=== PATIENT | female | born 1955 ===

== ENCOUNTER 2017-06-23 10:36 | Emergency (ER) | payer MEDICARE, MEDICAID ==
[2017-06-23 10:36] VITALS: BMI 28.3
[2017-06-23 10:46] VITALS: TEMP 97.8
[2017-06-23] MEDS ORDERED: Sodium Chloride 0.9% 1,000 ML IV ONE ×2 (11:50→11:53)
[2017-06-23 12:05] LABS: BASO # 0.1 K/uL (0.0-0.2); BASO % 1.1 % (0.0-2.0); EOS # 0.2 K/uL (0.0-0.7); EOS % 2.6 % (0.0-4.0); HEMOGLOBIN 12.1 g/dL (11.0-16.0); LYMPH # 2.4 K/uL (1.0-4.3); LYMPH % 36.6 % (20.0-40.0); MEAN CELL VOLUME 84.5 fL (81.0-99.0); MEAN CORPUSCULAR HEMOGLOBIN 28.7 pg (27.0-31.0); MEAN CORPUSCULAR HGB CONC 33.9 g/dL (33.0-37.0); MONO # 0.3 K/uL (0.0-0.8); MONO % 3.9 % (0.0-10.0); NEUT # 3.6 K/uL (1.8-7.0); NEUT % 55.8 % (50.0-75.0); NRBC % 0.1 % (0.0-2.0); RBC 4.2 Mil/uL (3.80-5.20); RED CELL DISTRIBUTION WIDTH 14.7 % (11.5-14.5); WHITE BLOOD COUNT 6.5 K/uL (4.8-10.8)
--- NOTE | 2017-06-23 12:16 | C.PDOC ---
History Of Present Illness 62-year-old female, presents to the emergency department with complaints of right flank pain, and urinary frequency, states she has had for " a while." Patient has a Hx of kidney stones, she called her doctor, who told patient to come to ED for further evaluation. Denies hematuria, abdominal pain. Time Seen by Provider: 06/23/17 11:34 Chief Complaint (Nursing): Back Pain History Per: Patient History/Exam Limitations: no limitations Past Medical History Reviewed: Historical Data, Nursing Documentation, Vital Signs Vital Signs: Last Vital Signs Temp 97.8 F 06/23/17 10:40 Pulse 85 06/23/17 13:53 Resp 16 06/23/17 13:53 BP 141/85 06/23/17 13:53 Pulse Ox 99 06/23/17 13:53 - Medical History PMH: Gastritis, HTN, Kidney Stones - [facility] Procedures DX ULTRASOUND-HEAD/NECK (11/12/14) PERCUTAN NEEDLE BX OF THYROID GLAND (11/12/14) Family History: States: No Known Family Hx - Social History Hx Alcohol Use: No Hx Substance Use: No - Immunization History Hx Tetanus Toxoid Vaccination: No Hx Influenza Vaccination: No Hx Pneumococcal Vaccination: No Review Of Systems Constitutional: Negative for: Fever, Chills Respiratory: Negative for: Shortness of Breath Gastrointestinal: Negative for: Vomiting Genitourinary: Positive for: Frequency Musculoskeletal: Positive for: Back Pain Neurological: Negative for: Weakness, Numbness, Headache, Dizziness Physical Exam - Physical Exam Appears: Non-toxic, No Acute Distress Skin: Normal Color, Warm, Dry, No Rash Head: Normacephalic Eye(s): bilateral: PERRL Nose: Normal Oral Mucosa: Moist Lips: Normal Appearing Neck: Normal ROM Cardiovascular: Rhythm Regular, No Murmur Respiratory: Normal Breath Sounds, No Accessory Muscle Use Back: Paraspinal Tenderness (midline tenderness) Extremity: Normal ROM, No Deformity, No Swelling ED Course And Treatment - Laboratory Results Result Diagrams: 06/23/17 12:01 06/23/17 13:05 Lab Interpretation: No Acute Changes O2 Sat by Pulse Oximetry: 96 (RA) Pulse Ox Interpretation: Normal - CT Scan/US No standard instances Other Rad Studies (CT/US): Read By Radiologist, Radiology Report Reviewed CT/US Interpretation: FINDINGS: LOWER THORAX: Unremarkable. LIVER: Normal size, contour and attenuation. Small nodular calcification in the left hepatic lobe consistent with a calcified granuloma. No biliary ductal dilatation. GALLBLADDER AND BILE DUCTS: Unremarkable. PANCREAS: Unremarkable. No gross lesion or ductal dilatation. SPLEEN: Unremarkable. ADRENALS: Unremarkable. No mass. KIDNEYS AND URETERS: Mild right hydronephrosis. No hydroureter. Probably related to UPJ obstruction. This is unchanged in appearance compared to prior examination. No left hydronephrosis. No renal mass. Two very small calculi are seen adjacent to 1 another in the mid left kidney, 2-3 mm each. No right renal calculus. No ureteral calculus. VASCULATURE: Unremarkable. No aortic aneurysm. BOWEL: Unremarkable. No obstruction. No gross mural thickening. APPENDIX: Unremarkable. Normal appendix. PERITONEUM: Unremarkable. No free fluid. No free air. LYMPH NODES: Unremarkable. No enlarged lymph nodes. BLADDER: Unremarkable. REPRODUCTIVE: Status post hysterectomy. BONES: No acute fracture. Status post posterior fixation L4 through S1 with pedicle screws and rods. OTHER FINDINGS: None. IMPRESSION: Two very small nonobstructing left renal calculi. Mild right hydronephrosis likely secondary to UPJ obstruction. Status post hysterectomy. Additional minor findings as above. Progress Note: Treated with IVF NSS and toradol. Treated with macrobid 100 mg PO. On re-evaluation abdomen soft Reassessment Condition: Improved Disposition - Disposition Referrals: Kajal Cooper MD [Staff Provider] - Disposition: HOME/ ROUTINE Disposition Time: 14:00 Condition: STABLE Additional Instructions: Return to ED if any increase symptoms Prescriptions: Ciprofloxacin [Cipro] 1 tab PO BID #14 tab Instructions: Flank Pain Forms: [facility] (Bhutanese) - POA Present On Arrival: None - Clinical Impression Clinical Impression: Low back pain - Scribe Statement The provider has reviewed the documentation as recorded by the Scribe (jus Dash) All medical record entries made by the Scribe were at my direction and personally dictated by me. I have reviewed the chart and agree that the record accurately reflects my personal performance of the history, physical exam, medical decision making, and the department course for this patient. I have also personally directed, reviewed, and agree with the discharge instructions and disposition.
[2017-06-23] MEDS ORDERED: Sodium Chloride 0.9% 2,000 ML ONE (12:32)
--- NOTE | 2017-06-23 12:44 | CT ---
PROCEDURE: CT Abdomen and Pelvis without intravenous contrast HISTORY: Pain COMPARISON: 03/13/2014 TECHNIQUE: Without contrast.. Contrast Dose: 0 Radiation dose: Total exam DLP = Total exam DLP = 466.96 mGy-cm. This CT exam was performed using one or more of the following dose reduction techniques: Automated exposure control, adjustment of the mA and/or kV according to patient size, and/or use of iterative reconstruction technique. FINDINGS: LOWER THORAX: Unremarkable. LIVER: Normal size, contour and attenuation. Small nodular calcification in the left hepatic lobe consistent with a calcified granuloma. No biliary ductal dilatation. GALLBLADDER AND BILE DUCTS: Unremarkable. PANCREAS: Unremarkable. No gross lesion or ductal dilatation. SPLEEN: Unremarkable. ADRENALS: Unremarkable. No mass. KIDNEYS AND URETERS: Mild right hydronephrosis. No hydroureter. Probably related to UPJ obstruction. This is unchanged in appearance compared to prior examination. No left hydronephrosis. No renal mass. Two very small calculi are seen adjacent to 1 another in the mid left kidney, 2-3 mm each. No right renal calculus. No ureteral calculus. VASCULATURE: Unremarkable. No aortic aneurysm. BOWEL: Unremarkable. No obstruction. No gross mural thickening. APPENDIX: Unremarkable. Normal appendix. PERITONEUM: Unremarkable. No free fluid. No free air. LYMPH NODES: Unremarkable. No enlarged lymph nodes. BLADDER: Unremarkable. REPRODUCTIVE: Status post hysterectomy BONES: No acute fracture. Status post posterior fixation L4 through S1 with pedicle screws and rods. OTHER FINDINGS: None. IMPRESSION: Two very small nonobstructing left renal calculi. Mild right hydronephrosis likely secondary to UPJ obstruction. Status post hysterectomy. Additional minor findings as above.
[2017-06-23 12:46] LABS: SQUAMOUS EPITHIAL 3 /hpf (0-5); URINE BACTERIA RARE (<OCC); URINE BILIRUBIN NEGATIVE (NEGATIVE); URINE BLOOD NEGATIVE (NEGATIVE); URINE CLARITY Clear (Clear); URINE COLOR Yellow (YELLOW); URINE GLUCOSE (UA) NORMAL (Normal); URINE LEUKOCYTE ESTERASE 2+ Leu/uL (Negative); URINE PROTEIN NEGATIVE (NEGATIVE); URINE UROBILINOGEN NORMAL mg/dL (0.2-1.0)
[2017-06-23 13:14] LABS: ALB/GLOB RATIO 1.2 (1.0-2.1); ALT/SGPT 22 U/L (9-52); AST/SGOT 26 U/L (14-36); BLOOD UREA NITROGEN 11 mg/dL (7-17); GFR AFRICAN-AMERICAN > 60; GFR NON-AFRICAN AMERICAN > 60
[2017-06-23 13:53] VITALS: BP 141/85; PULSE 85; RESP 16
[2017-06-23 18:30] VITALS: O2SAT 96
== END 2017-06-23 13:53 | disposition home or self-care (01) ==
LOC: C.ER 10:36
DX: M54.5 Low back pain (principal)
CPT/HCPCS: 74176; 80053; 81001; 85025; 87086; 96361; 96374; 99283; J1885; J7040

== ENCOUNTER 2017-10-05 09:52 | Emergency (ER) | payer MEDICARE, MEDICAID ==
[2017-10-05 09:53] VITALS: BMI 28.3
[2017-10-05] MEDS ORDERED: Sodium Chloride 0.9% 500 ML IV ONE ×2 (10:55→11:11)
[2017-10-05 11:17] LABS: BASO # 0.1 K/uL (0.0-0.2); BASO % 0.7 % (0.0-2.0); EOS # 0.1 K/uL (0.0-0.7); HEMOGLOBIN 12.6 g/dL (11.0-16.0); LYMPH # 2.7 K/uL (1.0-4.3); MEAN CELL VOLUME 84.7 fL (81.0-99.0); MEAN CORPUSCULAR HEMOGLOBIN 27.5 pg (27.0-31.0); MEAN CORPUSCULAR HGB CONC 32.5 g/dL (33.0-37.0); MEAN PLATELET VOLUME 10.8 fL (7.2-11.7); MONO # 0.3 K/uL (0.0-0.8); MONO % 4.1 % (0.0-10.0); NEUT # 4.1 K/uL (1.8-7.0); NEUT % 56.2 % (50.0-75.0); NRBC % 0.1 % (0.0-2.0); RBC 4.58 Mil/uL (3.80-5.20); RED CELL DISTRIBUTION WIDTH 14.7 % (11.5-14.5); WHITE BLOOD COUNT 7.3 K/uL (4.8-10.8)
[2017-10-05 11:27] LABS: URINE BILIRUBIN NEGATIVE (NEGATIVE); URINE BLOOD NEGATIVE (NEGATIVE); URINE CLARITY Clear (Clear); URINE COLOR Straw (YELLOW); URINE GLUCOSE (UA) NORMAL (Normal); URINE LEUKOCYTE ESTERASE 1+ Leu/uL (Negative); URINE PROTEIN NEGATIVE (NEGATIVE); URINE UROBILINOGEN NORMAL mg/dL (0.2-1.0)
[2017-10-05 11:33] LABS: SQUAMOUS EPITHIAL 2 /hpf (0-5); URINE BACTERIA RARE (<OCC)
[2017-10-05 11:42] LABS: ALB/GLOB RATIO 1.4 (1.0-2.1); ALBUMIN 4.1 g/dL (3.5-5.0); ALT/SGPT 31 U/L (9-52); AST/SGOT 32 U/L (14-36); BLOOD UREA NITROGEN 15 mg/dL (7-17); CALCIUM 9.4 mg/dl (8.6-10.4); GFR AFRICAN-AMERICAN > 60; GFR NON-AFRICAN AMERICAN > 60
[2017-10-05 12:02] VITALS: BP 156/98; PULSE 67; RESP 18; TEMP 98.3; O2SAT 100
--- NOTE | 2017-10-05 12:21 | C.PDOC ---
History Of Present Illness 62-year-old female presents to the emergency department with complaints of suprapubic pain (feels like a burning sensation) associated with dysuria that started 2 days ago but worsened today. Patient is s/p cystoscopy done by Dr. Gallego approximately one week ago. She denies vomiting, diarrhea, fever, vaginal bleeding/discharge, chest pain, SOB. She is currently on Macrobid x2 months given to her by her urologist (started after cystoscopy). Time Seen by Provider: 10/05/17 10:24 Chief Complaint (Nursing): Female Genitourinary History Per: Patient History/Exam Limitations: no limitations Onset/Duration Of Symptoms: Days Current Symptoms Are (Timing): Still Present Severity: Moderate Quality Of Discomfort: Burning, "Pain" Associated Symptoms: Urinary Symptoms (dysuria) Past Medical History Reviewed: Historical Data, Nursing Documentation, Vital Signs Vital Signs: Last Vital Signs Temp 98.3 F 10/05/17 12:02 Pulse 67 10/05/17 12:02 Resp 18 10/05/17 12:02 BP 156/98 H 10/05/17 12:02 Pulse Ox 100 10/05/17 15:03 - Medical History PMH: Gastritis, HTN, Kidney Stones - [facility] Procedures DX ULTRASOUND-HEAD/NECK (11/12/14) PERCUTAN NEEDLE BX OF THYROID GLAND (11/12/14) Family History: States: No Known Family Hx - Social History Hx Alcohol Use: No Hx Substance Use: No - Immunization History Hx Tetanus Toxoid Vaccination: No Hx Influenza Vaccination: No Hx Pneumococcal Vaccination: No Review Of Systems Constitutional: Negative for: Fever Cardiovascular: Negative for: Chest Pain Respiratory: Negative for: Cough, Shortness of Breath Gastrointestinal: Positive for: Abdominal Pain. Negative for: Nausea, Vomiting , Diarrhea Genitourinary: Positive for: Dysuria. Negative for: Frequency, Hematuria, Vaginal Discharge, Vaginal Bleeding Skin: Negative for: Rash Neurological: Negative for: Weakness, Headache Physical Exam - Physical Exam Appears: Well, Non-toxic, No Acute Distress Skin: Normal Color, Warm, Dry, No Rash Eye(s): bilateral: Normal Inspection Oral Mucosa: Moist Cardiovascular: Rhythm Regular Respiratory: Normal Breath Sounds, No Rales, No Rhonchi, No Wheezing Gastrointestinal/Abdominal: Bowel Sounds, Soft, Tenderness (suprapubic TTP, (-) McBurney's), No Distention, No Guarding, No Rebound Back: Normal Inspection, No CVA Tenderness Extremity: Normal ROM, No Deformity, No Swelling Neurological/Psych: Oriented x3 ED Course And Treatment - Laboratory Results Result Diagrams: 10/05/17 11:12 10/05/17 11:12 O2 Sat by Pulse Oximetry: 100 (RA) Pulse Ox Interpretation: Normal Progress Note: Bloodwork, UA/culture ordered. Patient given IV NS bolus, IV toradol. Reevaluation Time: 12:20 Reassessment Condition: Improved (On reassessment, patient is resting comfortably and pain has improved. On exam, abdomen is soft and nontender. Patient given rx for pyridium, and instructed to follow up with Dr. Gallego in the office (and to continue current antibiotics). She understands she should return to ED if symptoms worsen.) - Physician Consult Information Outcome Of Conversation: Discussed patient with Dr. Gallego, instructs continue antibiotics and follow up with him in the office. Disposition Counseled Patient/Family Regarding: Diagnosis, Need For Followup, Rx Given - Disposition Referrals: Aaron Gallego Jr., MD [Staff Provider] - Disposition: HOME/ ROUTINE Disposition Time: 12:20 Condition: STABLE Additional Instructions: FOLLOW UP WITH YOUR UROLOGIST IN 1-2 DAYS CONTINUE THE MACROBID YOUR UROLOGIST GAVE YOU USE NEW MEDICATION DIRECTED, AND USE YOUR TRAMADOL NEEDED FOR PAIN RETURN TO EMERGENCY ROOM IF SYMPTOMS WORSEN SEGUIMIENTO CON LORENZANA UROLOGIST EN 1-2 CARO CONTINE CON EL MACROBIDO QUE LORENZANA UROLOGISO LE MUMTAZ USE NUEVOS MEDICAMENTOS SEGN SE INDICA, Y USE LORENZANA TRAMADOL SEGN SEA NECESARIO PARA DOLOR REGRESE AL TATIANA DE EMERGENCIA SI LOS SNTOMAS EMPEORAN Prescriptions: Phenazopyridine [Pyridium] 100 mg PO TID #9 tab Instructions: Urinary Tract Infection, Adult (DC) Forms: [facility] (Lithuanian) Print Language: THAI - Clinical Impression Clinical Impression: UTI (urinary tract infection) - Scribe Statement The provider has reviewed the documentation as recorded by the Scribe (Dorota Dash) All medical record entries made by the Scribe were at my direction and personally dictated by me. I have reviewed the chart and agree that the record accurately reflects my personal performance of the history, physical exam, medical decision making, and the department course for this patient. I have also personally directed, reviewed, and agree with the discharge instructions and disposition.
== END 2017-10-05 12:50 | disposition home or self-care (01) ==
LOC: C.ER 09:52
DX: N39.0 Urinary tract infection, site not specified (principal)
CPT/HCPCS: 80053; 81001; 85025; 87086; 96374; 99285; J1885; J7040

== ENCOUNTER 2018-01-19 16:20 | Emergency (ER) | payer MEDICARE, MEDICAID ==
[2018-01-19 17:04] VITALS: BMI 29.0
[2018-01-19] MEDS ORDERED: Sodium Chloride 0.9% 1,000 ML IV ONE (17:05)
[2018-01-19] MEDS ORDERED: Sodium Chloride 0.9% 1,000 ML ONE (17:32)
--- NOTE | 2018-01-19 17:48 | C.PDOC ---
History Of Present Illness 63-year-old female, presents to the emergency department with complaints of epigastric and right upper quadrant abdominal pain that is associated with nausea and vomiting. Patient states pain is worse after she eats and progressively worsens. She notes she woke up this morning at 06:00 with pain, associated with nausea and then had an episode of diarrhea. She notes a Hx of kidney stones in the past, with multiple procedures for removal. She states that she has been on antibiotics several times over the past 2 months for UTI ass ociated with urinary obstruction. She also had a recent cystoscopy by Dr Gallego. Patient denies any other associated symptoms. Time Seen by Provider: 01/19/18 16:41 Chief Complaint (Nursing): Abdominal Pain History Per: Patient History/Exam Limitations: no limitations Past Medical History Reviewed: Historical Data, Nursing Documentation, Vital Signs Vital Signs: Last Vital Signs Temp 98.6 F 01/19/18 17:13 Pulse 71 01/19/18 17:13 Resp 19 01/19/18 17:13 BP Pulse Ox 98 01/19/18 17:13 - Medical History PMH: Gastritis, HTN, Kidney Stones Other Surgeries: Back pain, Surgical removal of kidney stones - [facility] Procedures DX ULTRASOUND-HEAD/NECK (11/12/14) PERCUTAN NEEDLE BX OF THYROID GLAND (11/12/14) Family History: States: Unknown Family Hx - Social History Hx Tobacco Use: No Hx Alcohol Use: No Hx Substance Use: No - Immunization History Hx Tetanus Toxoid Vaccination: No Hx Influenza Vaccination: Yes Hx Pneumococcal Vaccination: No Review Of Systems Constitutional: Negative for: Fever Respiratory: Negative for: Shortness of Breath Gastrointestinal: Positive for: Nausea, Vomiting, Abdominal Pain Neurological: Negative for: Headache Physical Exam - Physical Exam Appears: Non-toxic, No Acute Distress Skin: Warm, Dry, No Rash Head: Atraumatic, Normacephalic Eye(s): bilateral: Normal Inspection Nose: Normal Oral Mucosa: Moist Lips: Normal Appearing Neck: Normal ROM Chest: Symmetrical Cardiovascular: Rhythm Regular, No Murmur Respiratory: Normal Breath Sounds, No Accessory Muscle Use Gastrointestinal/Abdominal: Soft, Tenderness (epigastric, ruq), No Mass, No Guarding, No Rebound Back: CVA Tenderness Extremity: Normal ROM, No Deformity Neurological/Psych: Oriented x3, Normal Speech ED Course And Treatment - Laboratory Results Result Diagrams: 01/19/18 17:39 01/19/18 17:39 Lab Interpretation: No Acute Changes O2 Sat by Pulse Oximetry: 98 Pulse Ox Interpretation: Normal (RA) - CT Scan/US abdominal ultrasound Other Rad Studies (CT/US): Read By Radiologist, Radiology Report Reviewed CT/US Interpretation: Accession No. : [id number]. Patient Name / ID : ARCHIE SCHULZ / [id number]. Exam Date : 01/19/2018 17:43:18 ( Approved ). Study Comment : Sex / Age : F / [id number]. Creator : Janis Logan MD. Dictator : Janis Logan MD. Retail Zone Specialist : Anesthesiologist Assistant Certified : Janis Logan MD. Approver2 : Report Date : 01/19/2018 18:30:22. My Comment : . HISTORY: abd pain. COMPARISON: CT abdomen pelvis without contrast performed 06/23/17. TECHNIQUE: Sonographic evaluation of the abdomen. FINDINGS: LIVER: Measures 15.4 cm in sagittal dimension. Echogenic liver may be seen in setting of hepatic parenchymal disease or fatty infiltration. 5 x 6 x 4 mm echogenic focus with posterior acoustic shadowing consistent with calcification, right hepatic lobe. The main portal vein appears patent with normal directional flow. No intrahepatic bile duct dilatation. GALLBLADDER: Incomplete distention. No gallstones. No gallbladder wall thickening. Negative sonographic Vaughan's sign as assessed by the hospital monitor. COMMON BILE DUCT: Measures 4 mm. PANCREAS: Not well visualized. RIGHT KIDNEY: Measures 10.8 x 5.4 x 4.8cm. Mild right-sided hydronephrosis. No obstructing calculus identified. LEFT KIDNEY: Measures 11.5 x 5.2 x 5.2cm. No obstructing calculus or hydronephrosis identified. SPLEEN: Measures approximately 8.7 cm. AORTA: Limited views appear unremarkable. IVC: Limited views appear unremarkable. OTHER FINDINGS: None. IMPRESSION: Mild right- sided hydronephrosis. Hypoattenuation of the liver compatible with hepatic steatosis. 6 mm hepatic calcification. Progress Note: 9:11pm : Spoke with Dr. Gallego regarding the patient's case. - Physician Consult Information Time Consulting Physician Contacted: 21:13 Physician Contacted: Aaron Gallego Jr. Outcome Of Conversation: Patient to follow up in the office tomorrow. Will not continue antibiotics at this time. Cultures pending. Disposition Counseled Patient/Family Regarding: Studies Performed, Diagnosis, Need For Followup - Disposition Referrals: Aaron Gallego Jr., MD [Staff Provider] - Disposition: HOME/ ROUTINE Disposition Time: 21:17 Condition: IMPROVED Instructions: Acute Abdomen (Belly Pain), Adult (DC), Hydronephrosis in Adults Forms: [facility] (Ukrainian) - Clinical Impression Clinical Impression: Abdominal pain, Hydronephrosis, right - Scribe Statement The provider has reviewed the documentation as recorded by the Scribe (Dorota Dash) Provider Attestation: All medical record entries made by the Scribe were at my direction and personally dictated by me. I have reviewed the chart and agree that the record accurately reflects my personal performance of the history, physical exam, medical decision making, and the department course for this patient. I have also personally directed, reviewed, and agree with the discharge instructions and disposition.
[2018-01-19 17:49] LABS: BASO # 0.1 K/uL (0.0-0.2); BASO % 0.8 % (0.0-2.0); EOS # 0.2 K/uL (0.0-0.7); EOS % 2.2 % (0.0-4.0); HEMOGLOBIN 12.1 g/dL (11.0-16.0); LYMPH # 3.2 K/uL (1.0-4.3); LYMPH % 40.7 % (20.0-40.0); MEAN CELL VOLUME 84.1 fL (81.0-99.0); MEAN CORPUSCULAR HEMOGLOBIN 27.8 pg (27.0-31.0); MEAN CORPUSCULAR HGB CONC 33.1 g/dL (33.0-37.0); MEAN PLATELET VOLUME 10.4 fL (7.2-11.7); MONO # 0.4 K/uL (0.0-0.8); MONO % 5.1 % (0.0-10.0); NEUT # 4.1 K/uL (1.8-7.0); NEUT % 51.2 % (50.0-75.0); RBC 4.33 Mil/uL (3.80-5.20); RED CELL DISTRIBUTION WIDTH 14.4 % (11.5-14.5)
[2018-01-19 17:54] LABS: SQUAMOUS EPITHIAL 1 /hpf (0-5); URINE BACTERIA FEW (<OCC); URINE BILIRUBIN NEGATIVE (NEGATIVE); URINE BLOOD NEGATIVE (NEGATIVE); URINE CLARITY Clear (Clear); URINE COLOR Straw (YELLOW); URINE GLUCOSE (UA) NORMAL (Normal); URINE LEUKOCYTE ESTERASE 2+ Leu/uL (Negative); URINE PROTEIN NEGATIVE (NEGATIVE); URINE UROBILINOGEN NORMAL mg/dL (0.2-1.0)
[2018-01-19 18:12] LABS: ALB/GLOB RATIO 1.3 (1.0-2.1); ALBUMIN 4.1 g/dL (3.5-5.0); ALT/SGPT 23 U/L (9-52); AST/SGOT 20 U/L (14-36); BLOOD UREA NITROGEN 12 mg/dL (7-17); CALCIUM 9.1 mg/dl (8.6-10.4); GFR NON-AFRICAN AMERICAN > 60; LIPASE 91 U/L (23-300)
--- NOTE | 2018-01-19 18:33 | US ---
HISTORY: abd pain COMPARISON: CT abdomen pelvis without contrast performed 06/23/17 TECHNIQUE: Sonographic evaluation of the abdomen. FINDINGS: LIVER: Measures 15.4 cm in sagittal dimension. Echogenic liver may be seen in setting of hepatic parenchymal disease or fatty infiltration. 5 x 6 x 4 mm echogenic focus with posterior acoustic shadowing consistent with calcification, right hepatic lobe. The main portal vein appears patent with normal directional flow. No intrahepatic bile duct dilatation. GALLBLADDER: Incomplete distention. No gallstones. No gallbladder wall thickening. Negative sonographic Vaughan's sign as assessed by the precision filer hand. COMMON BILE DUCT: Measures 4 mm. PANCREAS: Not well visualized. RIGHT KIDNEY: Measures 10.8 x 5.4 x 4.8cm. Mild right-sided hydronephrosis. No obstructing calculus identified. LEFT KIDNEY: Measures 11.5 x 5.2 x 5.2cm. No obstructing calculus or hydronephrosis identified. SPLEEN: Measures approximately 8.7 cm. AORTA: Limited views appear unremarkable. IVC: Limited views appear unremarkable. OTHER FINDINGS: None. IMPRESSION: Mild right-sided hydronephrosis. Hypoattenuation of the liver compatible with hepatic steatosis. 6 mm hepatic calcification.
[2018-01-19] MEDS ORDERED: cefTRIAXone IV 1 gm in Dextros 50 ML IVPB ONE (18:56)
[2018-01-19] MEDS ORDERED: cefTRIAXone 1 gm 1 GM/100 ML BAG IVPB ONE (19:09)
[2018-01-19 19:21] VITALS: RESP 18
[2018-01-19 21:34] VITALS: BP 154/82; PULSE 88; TEMP 98.8; O2SAT 99
== END 2018-01-19 21:34 | disposition home or self-care (01) ==
LOC: C.ER 16:20
DX: R10.13 Epigastric pain (principal); N13.30 Unspecified hydronephrosis
CPT/HCPCS: 76700; 80053; 81001; 83690; 85025; 87086; 96374; 96375; 99285; J0696; J2270; J7030

== ENCOUNTER 2018-02-09 06:23 | Day surgery (SDC) | payer MEDICARE, MEDICAID ==
[2018-02-09] MEDS ORDERED: Propofol 10 mg/ml Inj (20 ML) ONE (08:00)
[2018-02-09] MEDS ORDERED: Lactated Ringer's 500 ML IV ONE ×2 (08:02)
--- NOTE | 2018-02-09 08:13 | CP.SDSHP ---
Same Day Surgery H & P - History Proposed Procedure: colonoscopy Pre-Op Diagnosis: h/o colon polyps/adenomas (2011) - Previous Medical/Surgical History Cardiac: Hypertension, Other (hyperlipidemia, ) Endocrine/Metabolic: Diabetes Neuro: Backaches Misc: Other (L/S Disc disease, kidney stones, colon polyps) Previous Surgical History: FATOU/BSO. Kidney s tone. x 1. L/S disc fusion of spine - Allergies Allergies: Allergies Sulfa (Sulfonamide Antibiotics) Allergy (Verified 02/08/18 09:47) RASH - Physical Exam Vital Signs: Vital Signs 02/09/18 06:41 Temperature 97.5 F L Pulse Rate 62 Respiratory 19 Rate Blood Pressure 143/83 O2 Sat by Pulse 97 Oximetry Mental Status: Alert & Oriented x3 Neuro: WNL Heart: WNL Lungs: WNL GI: WNL - Impression Impression: h/o colon polyps 2012 Pt. Evaluated Today:Candidate for Anesthesia & Procedure: Yes - Date & Time Date: 02/09/18 Time: 08:13 Short Stay Discharge - Short Stay Discharge Admitting Diagnosis/Reason for Visit: RIGHT LOWER QUADRANT PAIN, CHANGE IN BOWEL HABIT, Disposition: HOME/ ROUTINE
[2018-02-09 08:37] VITALS: TEMP 97.8
[2018-02-09 09:29] VITALS: BP 120/70; PULSE 61; RESP 13; O2SAT 100
== END 2018-02-09 09:28 | disposition home or self-care (01) ==
LOC: C.ENDO 06:23
PROVIDERS: ATTEND Internal Medicine Gastroenterology
DX: K62.0 Anal polyp (principal); R19.4 Change in bowel habit; I10 Essential (primary) hypertension; E78.5 Hyperlipidemia, unspecified; E11.9 Type 2 diabetes mellitus without complications; Z86.010 Personal history of colon polyps
CPT/HCPCS: 45378; 82948; J2704; J7120

== ENCOUNTER 2018-03-27 12:21 | Emergency (ER) | payer MEDICARE, MEDICAID ==
[2018-03-27 12:21] VITALS: BMI 29.0
--- NOTE | 2018-03-27 13:24 | C.PDOC ---
History Of Present Illness 63-year-old female presents to the ED with chief complaint of right flank pain, onset this morning. Patient reports acute onset of pain to right flank today, associated with nausea and lightheadedness. She denies any dysuria, abdominal pain, fever, chills, vomiting, or diarrhea. Patient also states she checked her pressure at home and found it to be elevated. PMHx is significant for hypertension, hypercholesterolemia, arthritis, and kidney stones. 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 Time Seen by Provider: 03/27/18 13:05 Chief Complaint (Nursing): Dizziness/Lightheaded History Per: Patient History/Exam Limitations: no limitations Onset/Duration Of Symptoms: Hrs Current Symptoms Are (Timing): Still Present Past Medical History Reviewed: Historical Data, Nursing Documentation, Vital Signs Vital Signs: Last Vital Signs Temp 98.6 F 03/27/18 13:16 Pulse 72 03/27/18 13:16 Resp 18 03/27/18 13:16 BP 141/81 03/27/18 13:16 Pulse Ox 96 03/27/18 13:16 - Medical History PMH: Arthritis, Gastritis, HTN, Hypercholesterolemia, Kidney Stones, Migraine, Chronic Kidney Disease Surgical History: Endoscopy Denies: Pacemaker - [facility] Procedures DX ULTRASOUND-HEAD/NECK (11/12/14) PERCUTAN NEEDLE BX OF THYROID GLAND (11/12/14) Family History: States: Unknown Family Hx - Social History Hx Tobacco Use: No Hx Alcohol Use: No Hx Substance Use: No - Immunization History Hx Tetanus Toxoid Vaccination: No Hx Influenza Vaccination: Yes Hx Pneumococcal Vaccination: No Review Of Systems Except As Marked, All Systems Reviewed And Found Negative. Constitutional: Negative for: Fever, Chills Cardiovascular: Positive for: Light Headedness. Negative for: Chest Pain Respiratory: Negative for: Shortness of Breath Gastrointestinal: Positive for: Nausea. Negative for: Vomiting, Abdominal Pain, Diarrhea Genitourinary: Negative for: Dysuria, Frequency, Hematuria Musculoskeletal: Positive for: Back Pain (right flank) Skin: Negative for: Rash Neurological: Negative for: Weakness, Numbness Physical Exam - Physical Exam Appears: Non-toxic, No Acute Distress Skin: Warm, Dry, No Rash Head: Atraumatic, Normacephalic Eye(s): bilateral: Normal Inspection, PERRL, EOMI Oral Mucosa: Moist Neck: Normal ROM Chest: Symmetrical, No Deformity Cardiovascular: Rhythm Regular, No Murmur Respiratory: Normal Breath Sounds, No Rales, No Rhonchi, No Wheezing Gastrointestinal/Abdominal: Soft, No Tenderness, No Distention Back: No Vertebral Tenderness, Other (diffuse right flank tenderness, with right lower rib cage tenderness) Extremity: Bilateral: Atraumatic, Normal Color And Temperature, Normal ROM Neurological/Psych: Oriented x3, Normal Speech Gait: Steady ED Course And Treatment - Laboratory Results Result Diagrams: 03/27/18 14:14 03/27/18 14:35 O2 Sat by Pulse Oximetry: 96 (NC) Pulse Ox Interpretation: Normal - Radiology CXR: Read By Radiologist CXR Interpretation: Yes: No Acute Disease - CT Scan/US CT Abd/Pelvis Other Rad Studies (CT/US): Read By Radiologist, Radiology Report Reviewed CT/US Interpretation: Accession No. : [id number]. Patient Name / ID : ARCHIE SCHULZ / [id number]. Exam Date : 03/27/2018 14:48:32 ( Approved ). Study Comment : Sex / Age : F / 63Y. Creator : Ayde Panda. Dictator : Ama Covarrubias MD. Chlorinator : State Director : Ama Covarrubias MD. Approver2 : Report Date : 03/27/2018 15:11:56. My Comment : . Date of service: 03/27/2018. PROCEDURE: CT Abdomen and Pelvis without intravenous contrast. HISTORY: R. flank pain. COMPARISON: 06/23/2017. TECHNIQUE: CT scan of the abdomen and pelvis was performed without administration of intravenous contrast. Oral contrast was not administered. Coronal and sagittal reformatted images were obtained. . Radiation dose: Total exam DLP = 483.48 mGy-cm. This CT exam was performed using one or more of the following dose reduction techniques: Automated exposure control, adjustment of the mA and/or kV according to patient size, and/or use of iterative reconstruction technique. FINDINGS: LOWER THORAX: The visualized lungs are clear. LIVER: Fatty liver. Small nonspecific calcification in the left hepatic lobe. No intrahepatic ductal dilatation. GALLBLADDER AND BILE DUCTS: No calcified gallstones. No biliary dilatation. PANCREAS: Normal in size. No ductal dilatation. SPLEEN: Normal in size. ADRENALS: Normal in size. No discrete nodule. KIDNEYS AND URETERS: Normal in size. There is a 6 mm nonobstructing stone in the left interpolar region. No hydronephrosis. There is redemonstration of mild right hydronephrosis and distention of the renal pelvis with normal caliber ureter which may represent UPJ obstruction. VASCULATURE: No aortic aneurysm. No aortic atherosclerotic calcification or mural plaque present. BOWEL: The small bowel loops are normal in caliber. The colon is normal in size. No bowel dilatation or wall thickening. No bowel obstruction. APPENDIX: No inflammatory changes in the right lower quadrant. PERITONEUM: No free fluid. No free air. LYMPH NODES: No enlarged lymph nodes. BLADDER: Well distended and grossly normal in appearance. REPRODUCTIVE: The uterus is surgically absent. BONES: No acute fracture. Status post posterior spinal fixation with transpedicular screws at L4, L5 and S1. OTHER FINDINGS: There are multiple phleboliths in the pelvis. IMPRESSION: No acute abdominal or pelvic abnormality. 6 mm nonobstructing stone in the interpolar region of the left kidney. Redemonstration of mild right hydronephrosis and distention of the renal pelvis which may be related to UPJ obstruction. No right nephrolithiasis or obstructive uropathy. Medical Decision Making Medical Decision Making: Initial Plan: --CMP --Lipase --Troponin I --CBC --UA --Urine culture --Chest x-ray --CT Abdomen/Pelvis --15 mg IV Toradol Labs reviewed. UA is clear. No clinically significant abnormalities. CT findings reviewed and discussed with patient. 15:30 On reevaluation, patient reports improvement in symptoms. Plan is to discharge patient home with outpatient urology follow up. Patient verbalizes agreement and states she will call and follow up with urologist tomorrow. Disposition Counseled Patient/Family Regarding: Diagnosis, Need For Followup, Rx Given - Disposition Disposition: HOME/ ROUTINE Disposition Time: 15:34 Condition: STABLE Additional Instructions: Follow up with your urologist tomorrow Prescriptions: oxyCODONE/Acetaminophen [Percocet 5/325 mg Tab] 1 ea PO TID 2 Days #6 tab Instructions: Hydronephrosis in Adults Forms: [facility] (Tajik) - POA Present On Arrival: None - Clinical Impression Clinical Impression: Hydronephrosis, right - Scribe Statement The provider has reviewed the documentation as recorded by the Lyla Salcedo Provider Attestation: All medical record entries made by the Lyla were at my direction and personally dictated by me. I have reviewed the chart and agree that the record accurately reflects my personal performance of the history, physical exam, medical decision making, and the department course for this patient. I have also personally directed, reviewed, and agree with the discharge instructions and disposition.
--- NOTE | 2018-03-27 13:47 | RAD ---
Date of service: 03/27/2018 HISTORY: Shortness of breath COMPARISON: No prior. TECHNIQUE: Chest PA and lateral FINDINGS: LINES AND TUBES: None. LUNG AND PLEURA: The lungs are well inflated and clear. No pleural effusion or pneumothorax. HEART AND MEDIASTINUM: The heart is not enlarged. There are aortic atherosclerotic calcifications present. The hilar and mediastinal contours are within normal limits. SKELETAL STRUCTURES: The bony structures are within normal limits for the patient's age. VISUALIZED UPPER ABDOMEN: Normal. OTHER FINDINGS: None. IMPRESSION: No active pulmonary disease.
[2018-03-27 13:51] LABS: SQUAMOUS EPITHIAL 1 /hpf (0-5); URINE BILIRUBIN NEGATIVE (NEGATIVE); URINE BLOOD NEGATIVE (NEGATIVE); URINE CLARITY Clear (Clear); URINE COLOR Yellow (YELLOW); URINE GLUCOSE (UA) NORMAL (Normal); URINE LEUKOCYTE ESTERASE NEG Leu/uL (Negative); URINE PROTEIN NEGATIVE (NEGATIVE); URINE UROBILINOGEN NORMAL mg/dL (0.2-1.0)
[2018-03-27 14:21] LABS: BASO # 0.1 K/uL (0.0-0.2); BASO % 1.3 % (0.0-2.0); EOS # 0.2 K/uL (0.0-0.7); EOS % 2.2 % (0.0-4.0); HEMOGLOBIN 12.7 g/dL (11.0-16.0); LYMPH # 2.5 K/uL (1.0-4.3); LYMPH % 26.5 % (20.0-40.0); MEAN CORPUSCULAR HEMOGLOBIN 28.8 pg (27.0-31.0); MEAN CORPUSCULAR HGB CONC 33.1 g/dL (33.0-37.0); MEAN PLATELET VOLUME 10.9 fL (7.2-11.7); MONO # 0.5 K/uL (0.0-0.8); MONO % 5.5 % (0.0-10.0); NEUT # 6.2 K/uL (1.8-7.0); NEUT % 64.5 % (50.0-75.0); NRBC % 0.2 % (0.0-2.0); RBC 4.4 Mil/uL (3.80-5.20); RED CELL DISTRIBUTION WIDTH 14.6 % (11.5-14.5); WHITE BLOOD COUNT 9.6 K/uL (4.8-10.8)
[2018-03-27 14:53] LABS: ALB/GLOB RATIO 1.5 (1.0-2.1); ALBUMIN 4.6 g/dL (3.5-5.0); ALT/SGPT 26 U/L (9-52); AST/SGOT 23 U/L (14-36); BLOOD UREA NITROGEN 20 mg/dL (7-17); CALCIUM 9.9 mg/dl (8.6-10.4); GFR NON-AFRICAN AMERICAN > 60; LIPASE 81 U/L (23-300)
[2018-03-27] MEDS ORDERED: Morphine 4 MG/ML VIAL IV ONE (15:16)
[2018-03-27 15:18] VITALS: BP 158/88; PULSE 80; RESP 20; TEMP 98.7
[2018-03-27] MEDS ORDERED: Morphine 4 MG/ML VIAL ONE (15:22)
--- NOTE | 2018-03-27 15:24 | CT ---
Date of service: 03/27/2018 PROCEDURE: CT Abdomen and Pelvis without intravenous contrast HISTORY: R. flank pain COMPARISON: 06/23/2017 TECHNIQUE: CT scan of the abdomen and pelvis was performed without administration of intravenous contrast. Oral contrast was not administered. Coronal and sagittal reformatted images were obtained. . Radiation dose: Total exam DLP = 483.48 mGy-cm. This CT exam was performed using one or more of the following dose reduction techniques: Automated exposure control, adjustment of the mA and/or kV according to patient size, and/or use of iterative reconstruction technique. FINDINGS: LOWER THORAX: The visualized lungs are clear. LIVER: Fatty liver. Small nonspecific calcification in the left hepatic lobe. No intrahepatic ductal dilatation. GALLBLADDER AND BILE DUCTS: No calcified gallstones. No biliary dilatation PANCREAS: Normal in size. No ductal dilatation. SPLEEN: Normal in size. ADRENALS: Normal in size. No discrete nodule. KIDNEYS AND URETERS: Normal in size. There is a 6 mm nonobstructing stone in the left interpolar region. No hydronephrosis. There is redemonstration of mild right hydronephrosis and distention of the renal pelvis with normal caliber ureter which may represent UPJ obstruction. VASCULATURE: No aortic aneurysm. No aortic atherosclerotic calcification or mural plaque present. BOWEL: The small bowel loops are normal in caliber. The colon is normal in size. No bowel dilatation or wall thickening. No bowel obstruction. APPENDIX: No inflammatory changes in the right lower quadrant. PERITONEUM: No free fluid. No free air. LYMPH NODES: No enlarged lymph nodes. BLADDER: Well distended and grossly normal in appearance. REPRODUCTIVE: The uterus is surgically absent. BONES: No acute fracture. Status post posterior spinal fixation with transpedicular screws at L4, L5 and S1. OTHER FINDINGS: There are multiple phleboliths in the pelvis. IMPRESSION: No acute abdominal or pelvic abnormality. 6 mm nonobstructing stone in the interpolar region of the left kidney. Redemonstration of mild right hydronephrosis and distention of the renal pelvis which may be related to UPJ obstruction. No right nephrolithiasis or obstructive uropathy.
[2018-03-27 15:37] VITALS: O2SAT 96
== END 2018-03-27 16:01 | disposition home or self-care (01) ==
LOC: C.ER 12:21
DX: N13.30 Unspecified hydronephrosis (principal); I12.9 Hypertensive chronic kidney disease with stage 1 through stage 4 chronic kidney disease, or unspecified chronic kidney disease; N18.9 Chronic kidney disease, unspecified; E78.00 Pure hypercholesterolemia, unspecified; Z87.442 Personal history of urinary calculi
CPT/HCPCS: 71046; 74176; 80053; 81001; 83690; 84484; 85025; 87086; 96374; 96375; 99285; J1885; J2270; J2405

== ENCOUNTER 2018-04-05 12:17 | Outpatient (CLI) | payer MEDICARE, MEDICAID | END 2018-04-05 12:18 | disposition home or self-care (01) | LOC: C.EKG 12:17 → C.LAB 12:18 | DX: N20.0 Calculus of kidney (principal); N30.90 Cystitis, unspecified without hematuria; N30.20 Other chronic cystitis without hematuria; Z01.818 Encounter for other preprocedural examination ==

== ENCOUNTER 2018-04-18 12:54 | Day surgery (SDC) | payer MEDICARE, MEDICAID ==
[2018-04-14 09:05] VITALS: BMI 28.7
[2018-04-18] MEDS ORDERED: Gentamicin 80 mg in 0.9% NS 80 MG/100 ML BAG IVPB SCH (13:53)
[2018-04-18] MEDS ORDERED: Ciprofloxacin 400mg/200ml D5W 400 MG/200 ML BAG IVPB ONE (14:25)
[2018-04-18] MEDS ORDERED: Lidocaine 2% Jelly (Uro-Jet) ONE (14:26)
[2018-04-18] MEDS ORDERED: Propofol 10 mg/ml Inj (20 ML) ONE (14:34)
[2018-04-18] MEDS ORDERED: Iohexol 240 (50 ml) ONE (14:35)
[2018-04-18] MEDS ORDERED: Gentamicin 80 mg in 0.9% NS 160 MG/200 ML BAG IVPB ONE (14:35)
[2018-04-18] MEDS: Gentamicin 80 mg in 0.9% NS 160 MG/200 ML BAG IVPB ONE ×2 (14:40→14:55)
--- NOTE | 2018-04-18 14:57 | PCM.SURG1 ---
Surgeon's Initial Post Op Note - Surgeon's Notes Surgeon: Lashonda Vending Manager: KATHRYN Type of Anesthesia: General LMA Anesthesia Administered By: marvin Pre-Operative Diagnosis: R hydro Operative Findings: RHYDRO secondary to upj obstruction Post-Operative Diagnosis: same Operation Performed: Cysto Retrograde Specimen/Specimens Removed: na Estimated Blood Loss: EBL {In ML}: 0 Blood Products Given: N/A Drains Used: No Drains Post-Op Condition: Good Date of Surgery/Procedure: 04/18/18 Time of Surgery/Procedure: 14:57
[2018-04-18] MEDS ORDERED: Lactated Ringer's 1,000 ML IV SCH (15:15)
[2018-04-18 16:31] VITALS: RESP 16
[2018-04-18 16:51] VITALS: BP 127/57; PULSE 65; TEMP 97.8; O2SAT 96
--- NOTE | 2018-04-18 17:10 | RAD ---
Date of service: 04/18/2018 PROCEDURE: Intraoperative Fluoroscopy. HISTORY: RT.URETERAL CALCULI FINDINGS: Fluoroscopic assistance was provided. Fluoroscopy time = 23.6 sec. Radiation dose = 0.04451 mGy-cm Please refer to the operative report from JESS Rahman.
--- NOTE | 2018-04-19 10:24 | RAD ---
Date of service: 04/18/2018 HISTORY: RT URETERAL CALCULI COMPARISON: 10/16/2014 FINDINGS: BOWEL: Mild stool retention right colon now present-less than before. BONES: Status post bilateral laminectomies inferior lumbar spine with grossly similar in grossly cyst intact appearing hardware present. OTHER FINDINGS: The approximately 6 mm calcification projects over left upper abdominal quadrant of this was present on the prior study-its size appears slightly increased compared the prior study. The left midpole calculus is compatible with this. Bilateral hemipelvic phleboliths are as before. Right gluteal injection granuloma inferred and similar. IMPRESSION: No right sided suspect urolithiasis appreciated. Multiple bilateral hemipelvic phleboliths are favored; the number have increased since prior exams and their sizes have increased since prior exam. Left renal midpole calculus-now appears 6 mm Other findings as above.
--- NOTE | 2018-04-19 22:18 | OP ---
PROCEDURE DATE: 04/18/2018 PREOPERATIVE DIAGNOSIS: Right hydronephrosis. POSTOPERATIVE DIAGNOSIS: Minimal hydronephrosis, possibly secondary to right ureteropelvic junction narrowing, cannot rule out congenital box pelvis. DESCRIPTION OF PROCEDURE: The procedure is as follows: The patient signed the detailed informed consent. She was advised of the risks and complications of this procedure. She was brought into the room. KUB was taken and there were no visible calculi. The patient was cystoscoped with #21 Storz panendoscope. The urethra was normal. The bladder was entered atraumatically. There was no evidence of urothelial tumors or stones. The right ureteral orifice was cannulized with a 0.038 guidewire and was passed up to the renal pelvis. An open-ended ureteral catheter was passed over this and the guidewire was removed. Multiple retrograde films were obtained. They showed a mild hydronephrosis/boxed pelvis with minimal clubbing of the calices. The films did show some drainage of the pelvis after time and it is not clear whether this represents a congenital box pelvis or true UPJ obstruction. The patient tolerated this well. She will be kept on antibiotics and Flomax and follow up in our office in 1 month. Aaron Gallego MD
== END 2018-04-18 16:52 | disposition home or self-care (01) ==
LOC: C.SDS 12:54
PROVIDERS: ATTEND Urology
DX: N30.20 Other chronic cystitis without hematuria (principal)
CPT/HCPCS: 52005; 74018; 82948; C1758; C1769; J0744; J1580; J2270; Q9966

== ENCOUNTER 2018-07-27 10:51 | Emergency (ER) | payer MEDICARE, MEDICAID ==
[2018-07-27 10:54] VITALS: BMI 29.0
[2018-07-27 11:40] LABS: BASO # 0.1 K/uL (0.0-0.2); BASO % 1.1 % (0.0-2.0); EOS # 0.2 K/uL (0.0-0.7); EOS % 2.4 % (0.0-4.0); HEMOGLOBIN 12.2 g/dL (11.0-16.0); LYMPH # 2.3 K/uL (1.0-4.3); LYMPH % 33.7 % (20.0-40.0); MEAN CELL VOLUME 86.8 fL (81.0-99.0); MEAN CORPUSCULAR HEMOGLOBIN 28.5 pg (27.0-31.0); MEAN CORPUSCULAR HGB CONC 32.8 g/dL (33.0-37.0); MEAN PLATELET VOLUME 10.6 fL (7.2-11.7); MONO # 0.3 K/uL (0.0-0.8); MONO % 4.4 % (0.0-10.0); NEUT % 58.4 % (50.0-75.0); RBC 4.3 Mil/uL (3.80-5.20); RED CELL DISTRIBUTION WIDTH 15.1 % (11.5-14.5); WHITE BLOOD COUNT 6.8 K/uL (4.8-10.8)
[2018-07-27 11:55] LABS: BLOOD UREA NITROGEN 14 mg/dL (7-17); CALCIUM 9.2 mg/dl (8.6-10.4); GFR NON-AFRICAN AMERICAN > 60
[2018-07-27 11:56] LABS: ALB/GLOB RATIO 1.2 (1.0-2.1); ALBUMIN 4.3 g/dL (3.5-5.0); ALT/SGPT 16 U/L (9-52); AST/SGOT 46 U/L (14-36)
[2018-07-27 11:58] LABS: SQUAMOUS EPITHIAL 5 /hpf (0-5); URINE BILIRUBIN NEGATIVE (NEGATIVE); URINE BLOOD NEGATIVE (NEGATIVE); URINE CLARITY Hazy (Clear); URINE COLOR Yellow (YELLOW); URINE GLUCOSE (UA) NORMAL (Normal); URINE LEUKOCYTE ESTERASE 1+ Leu/uL (Negative); URINE PROTEIN NEGATIVE (NEGATIVE); URINE UROBILINOGEN NORMAL mg/dL (0.2-1.0)
--- NOTE | 2018-07-27 12:59 | RAD ---
Date of service: 07/27/2018 PROCEDURE: CHEST RADIOGRAPH, 1 VIEW HISTORY: SOB COMPARISON: 04/05/2018 FINDINGS: LUNGS: Clear. PLEURA: No pneumothorax or pleural fluid seen. CARDIOVASCULAR: No aortic atherosclerotic calcification present. No radiographic findings to suggest acute or significant cardiovascular disease. OSSEOUS STRUCTURES: No significant abnormalities. VISUALIZED UPPER ABDOMEN: Normal. OTHER FINDINGS: None. IMPRESSION: No active disease.No significant interval change compared to the prior examination(s).
--- NOTE | 2018-07-27 14:20 | C.PDOC ---
History Of Present Illness 63 y/o female presents to the ER complaining of productive cough with yellow phlegm and nasal congestion which has been present for the past 5 days. Patient states that she has right sided rib pain with cough. She notes that the pain radiates to the back. Patient denies having fever,chills, SOB, nausea ,and vomiting. Time Seen by Provider: 07/27/18 10:58 Chief Complaint (Nursing): Shortness Of Breath History Per: Patient History/Exam Limitations: no limitations Onset/Duration Of Symptoms: Days Current Symptoms Are (Timing): Still Present Severity: Moderate Past Medical History Reviewed: Historical Data, Nursing Documentation, Vital Signs Vital Signs: Last Vital Signs Temp 98.7 F 07/27/18 10:54 Pulse 64 07/27/18 13:36 Resp 13 07/27/18 13:36 BP 128/67 07/27/18 13:36 Pulse Ox 95 07/27/18 13:36 Primary Care Provider: Kajal Cooper - Medical History PMH: Arthritis, Gastritis, HTN, Hypercholesterolemia, Kidney Stones, Migraine, Chronic Kidney Disease Surgical History: Endoscopy Denies: Pacemaker - [facility] Procedures DX ULTRASOUND-HEAD/NECK (11/12/14) PERCUTAN NEEDLE BX OF THYROID GLAND (11/12/14) Family History: States: No Known Family Hx - Social History Hx Tobacco Use: No Hx Alcohol Use: No Hx Substance Use: No - Immunization History Hx Tetanus Toxoid Vaccination: No Hx Influenza Vaccination: Yes Hx Pneumococcal Vaccination: No Review Of Systems Except As Marked, All Systems Reviewed And Found Negative. Constitutional: Negative for: Fever ENT: Positive for: Nose Congestion Respiratory: Positive for: Cough. Negative for: Shortness of Breath Gastrointestinal: Negative for: Nausea, Vomiting Musculoskeletal: Positive for: Other (rib pain) Physical Exam - Physical Exam Appears: Non-toxic, No Acute Distress Skin: Normal Color, Warm, Dry Head: Atraumatic, Normacephalic Eye(s): bilateral: Normal Inspection Nose: Normal Oral Mucosa: Moist Neck: Supple Chest: Symmetrical, Tenderness (mild right sided chest wall tenderness) Cardiovascular: Rhythm Regular Respiratory: Normal Breath Sounds, No Rales, No Rhonchi, No Wheezing Gastrointestinal/Abdominal: Normal Exam, Soft, No Tenderness, No Guarding, No Rebound Extremity: Normal ROM Neurological/Psych: Oriented x3, Normal Speech Gait: Steady ED Course And Treatment - Laboratory Results Result Diagrams: 07/27/18 11:35 07/27/18 11:35 Lab Results: D-Dimer, Quantitative < 200 ng/mlDDU (0-243) 07/27/18 13:33 Troponin I < 0.0120 ng/mL (0.00-0.120) 07/27/18 11:35 NT-Pro-B Natriuret Pep 23.0 pg/mL (0-900) 07/27/18 11:35 Total Bilirubin 1.0 mg/dL (0.2-1.3) 07/27/18 11:35 AST 46 U/L (14-36) H D 07/27/18 11:35 ALT 16 U/L (9-52) 07/27/18 11:35 Alkaline Phosphatase 75 U/L (38-126) 07/27/18 11:35 Total Protein 7.9 g/dL (6.3-8.3) 07/27/18 11:35 Albumin 4.3 g/dL (3.5-5.0) 07/27/18 11:35 Globulin 3.6 gm/dL (2.2-3.9) 07/27/18 11:35 Albumin/Globulin Ratio 1.2 (1.0-2.1) 07/27/18 11:35 Urine Color Yellow (YELLOW) 07/27/18 11:35 Urine Clarity Hazy (Clear) 07/27/18 11:35 Urine pH 5.0 (5.0-8.0) 07/27/18 11:35 Ur Specific [place] 1.013 (1.003-1.030) 07/27/18 11:35 Urine Protein Negative mg/dL (NEGATIVE) 07/27/18 11:35 Urine Glucose (UA) Normal mg/dL (Normal) 07/27/18 11:35 Urine Ketones Negative mg/dL (NEGATIVE) 07/27/18 11:35 Urine Blood Negative (NEGATIVE) 07/27/18 11:35 Urine Nitrate Negative (NEGATIVE) 07/27/18 11:35 Urine Bilirubin Negative (NEGATIVE) 07/27/18 11:35 Urine Urobilinogen Normal mg/dL (0.2-1.0) 07/27/18 11:35 Ur Leukocyte Esterase 1+ Lindsey/uL (Negative) H 07/27/18 11:35 Urine WBC (Auto) 19 /hpf (0-5) H 07/27/18 11:35 Urine RBC (Auto) 1 /hpf (0-3) 07/27/18 11:35 Ur Squamous Epith Cells 5 /hpf (0-5) 07/27/18 11:35 Lab Interpretation: No Acute Changes ECG: Interpreted By [place] ECG Rhythm: Sinus Rhythm ECG Interpretation: Normal Rate From EC O2 Sat by Pulse Oximetry: 95 (RA) Pulse Ox Interpretation: Normal - CT Scan/US No standard instances Other Rad Studies (CT/US): Read By Radiologist, Radiology Report Reviewed CT/US Interpretation: FINDINGS: LOWER THORAX: Unremarkable. LIVER: Punctate granuloma reiterated at the left lobe liver with liver otherwise unremarkable. GALLBLADDER AND BILE DUCTS: Unremarkable. PANCREAS: Unremarkable. No gross lesion or ductal dilatation. SPLEEN: Unremarkable. ADRENALS: Unremarkable. No mass. KIDNEYS AND URETERS: Stable limited right hydronephrosis including the pelvis with normal caliber ureter once again which could reflect proximal right ureteral or right UPJ stricture. No interval change compared 03/27/[address] Stable nonobstructing intrarenal calculus is again evident at the mid to lower pole left kidney remaining 6 mm greatest dimension. No interval left hydronephrosis. VASCULATURE: Unremarkable. No aortic aneurysm. No aortic atherosclerotic calcification or mural plaque present. BOWEL: Stomach is mildly distended with retained food. No bowel obstruction. No gross mural thickening. APPENDIX: Unremarkable. Normal appendix. PERITONEUM: Unremar kable. No free fluid. No free air. LYMPH NODES: Unremarkable. No enlarged lymph nodes. BLADDER: Urinary bladder is decompressed. REPRODUCTIVE: Unremarkable. BONES: Prior bilateral laminectomies at L4 and L5 are reiterated with posterior spinal fusion by transpedicular screws and interconnecting rods from L4-S1 appears stable. No interval hardware failure appreciable. OTHER FINDINGS: None. IMPRESSION: 1. Potential limited right UPJ stricture or loosing calculus obstructing the right UPJ causing mild right hydronephrosis without significant interval change. Nonobstructing intrarenal calculus is again seen the mid to lower pole left kidney 6 mm greatest dimension. 2. Left lobe hepatic granuloma again evident. 3. L5 through S1 post spinal fusion with bilateral laminectomies at L4-L5 reiterated. Progress Note: Labs,UA, CXR, and CT-Abd & Pelv. ordered.Patient treated with Keflex PO and Toradol IV. Reassessment Condition: Improved Disposition Doctor Will See Patient In The: Office Counseled Patient/Family Regarding: Studies Performed, Diagnosis, Need For Followup, Rx Given - Disposition Referrals: [facility] [Outside] [place] [employer] [Outside] Melecio Omalley MD [Staff Provider] - Disposition: HOME/ ROUTINE Disposition Time: 14:30 Condition: STABLE Additional Instructions: Follow up with your PMD and Urologist Prescriptions: Albuterol HFA [Ventolin HFA 90 mcg/actuation (8 g)] 2 puff IH [id number] #1 vial Cephalexin [cephalexin] 500 mg PO Q6 #28 cap Instructions: Urinary Tract Infection, Adult (DC), Acute Bronchitis Forms: [facility] (Croatian) - POA Present On Arrival: None - Clinical Impression Clinical Impression: Bronchitis, UTI (urinary tract infection) - PA / SECTION CUTTER / Resident Statement MD/DO has reviewed & agrees with the documentation as recorded. - Scribe Statement The provider has reviewed the documentation as recorded by the Lyla Garber Provider Attestation All medical record entries made by the Tinyibe were at my direction and personally dictated by me. I have reviewed the chart and agree that the record accurately reflects my personal performance of the history, physical exam, medical decision making, and the department course for this patient. I have also personally directed, reviewed, and agree with the discharge instructions and disposition.
--- NOTE | 2018-07-27 14:23 | CT ---
Date of service: 07/27/2018 PROCEDURE: CT Abdomen and Pelvis without intravenous contrast HISTORY: Pain COMPARISON: Unenhanced abdomen pelvis CT 03/27/2018. TECHNIQUE: Helical CT of the abdomen and pelvis was performed without oral or intravenous contrast as per referring physician request. Coronal and sagittal reformats were generated. Radiation dose: Total exam DLP = 594.53 mGy-cm. This CT exam was performed using one or more of the following dose reduction techniques: Automated exposure control, adjustment of the mA and/or kV according to patient size, and/or use of iterative reconstruction technique. FINDINGS: LOWER THORAX: Unremarkable. LIVER: Punctate granuloma reiterated at the left lobe liver with liver otherwise unremarkable. GALLBLADDER AND BILE DUCTS: Unremarkable. PANCREAS: Unremarkable. No gross lesion or ductal dilatation. SPLEEN: Unremarkable. ADRENALS: Unremarkable. No mass. KIDNEYS AND URETERS: Stable limited right hydronephrosis including the pelvis with normal caliber ureter once again which could reflect proximal right ureteral or right UPJ stricture. No interval change compared 03/27/[address] Stable nonobstructing intrarenal calculus is again evident at the mid to lower pole left kidney remaining 6 mm greatest dimension. No interval left hydronephrosis. VASCULATURE: Unremarkable. No aortic aneurysm. No aortic atherosclerotic calcification or mural plaque present. BOWEL: Stomach is mildly distended with retained food. No bowel obstruction. No gross mural thickening. APPENDIX: Unremarkable. Normal appendix. PERITONEUM: Unremarkable. No free fluid. No free air. LYMPH NODES: Unremarkable. No enlarged lymph nodes. BLADDER: Urinary bladder is decompressed. REPRODUCTIVE: Unremarkable. BONES: Prior bilateral laminectomies at L4 and L5 are reiterated with posterior spinal fusion by transpedicular screws and interconnecting rods from L4-S1 appears stable. No interval hardware failure appreciable. OTHER FINDINGS: None. IMPRESSION: 1. Potential limited right UPJ stricture or loosing calculus obstructing the right UPJ causing mild right hydronephrosis without significant interval change. Nonobstructing intrarenal calculus is again seen the mid to lower pole left kidney 6 mm greatest dimension. 2. Left lobe hepatic granuloma again evident. 3. L5 through S1 post spinal fusion with bilateral laminectomies at L4-L5 reiterated.
[2018-07-27 15:13] VITALS: BP 146/76; PULSE 67; RESP 20; TEMP 98.2
[2018-07-27 16:04] VITALS: O2SAT 95
--- NOTE | 2018-07-28 12:15 | CARD ---
APPROVED REPORT Date of service: 07/27/2018 EKG Measurement Heart [id number] <Conclusion> Normal sinus rhythm Normal ECG
== END 2018-07-27 15:13 | disposition home or self-care (01) ==
LOC: C.ER 10:51
DX: J40 Bronchitis, not specified as acute or chronic (principal); N39.0 Urinary tract infection, site not specified
CPT/HCPCS: 71045; 74176; 80053; 81001; 83880; 84484; 85025; 85378; 93005; 96374; 99285; J1885